=== PATIENT | female | born 1935 | race Caucasian/White ===

== ENCOUNTER 2017-03-25 18:34 | Inpatient (IN) | payer OTHER, MEDICARE ==
[~2017-03-25] VITALS: Ht 154.9 cm; Wt 66.7 kg
--- NOTE | ~2017-03-25 | H ---
[facility] [place] [address] HISTORY AND PHYSICAL Name: SILVERIO WHITFIELD Room #: 205-P [facility] IN M.R.#: [id number] Admission: 03/25/17 Attend Phys: Kartik Morrison MD, Discharge: Date of : 35 Report #: [id number] THIS REPORT FOR: //name// CC: Juan Morrison DATE OF SERVICE: 03/26/2017 INDICATION: Chest pain. HISTORY OF PRESENT ILLNESS: This is an 82-year-old female presenting with left-sided chest and arm discomfort. After eating a piece of chocolate, she had a coughing episode that lasted for approximately 15 minutes. This was followed by a discomfort in the left axillary area, which then radiated down the left arm and shoulder area. The pain persisted and she presented to the Emergency Room for evaluation. She denies any shortness of breath, chest pains, diaphoresis or congestion. She did have a CTA of the chest that was negative for PE or aortic dissection. However, the initial troponin was elevated and she was admitted to the hospital. The second troponin is positive at 5. She has been stabilized with IV heparin and nitroglycerin. There is no history of fever, nausea or diarrhea. PAST MEDICAL HISTORY: Coronary artery disease with stent placement to the left anterior descending in 2014. The occlusion in the left anterior descending involved the bifurcation of the first diagonal artery and surgery was recommended. However, the patient refused and underwent stent placement. History of hypertension, hypercholesterolemia. ALLERGIES: INCLUDE CONTRAST DYE, LATEX, PENICILLINS, BACTRIM. MEDICATIONS: At home include aspirin, Lipitor 80, metoprolol XL 25, WelChol, diazepam. SOCIAL HISTORY: Negative for tobacco use. FAMILY HISTORY: Negative for premature coronary artery disease. REVIEW OF SYSTEMS: A full 10-point review of systems performed. Only the pertinent positives and negatives are described in the HPI. PHYSICAL EXAMINATION: VITAL SIGNS: Blood pressure is 140/90, heart rate is 90 beats per minute. GENERAL APPEARANCE: An elderly appearing female in no acute respiratory distress. HEAD AND EYES: Normocephalic. Sclerae are anicteric. ENT: Oral mucosa moist. [facility] [address] [place] [address] HISTORY AND PHYSICAL Name: SILVERIO WHITFIELD Room #: 205-P [facility] IN [facility]#: [id number] Admission: 03/25/17 Attend Phys: Kartik Morrison MD, Discharge: Date of : 35 Report #: [id number] NECK: Supple. LUNGS: Clear to auscultation. CARDIAC: Regular rate and rhythm, S1, S2 positive. ABDOMEN: Soft. EXTREMITIES: No major joint deformities. No cyanosis, no edema. LABORATORY VALUES: Troponin is 5.05. Sodium is 135, creatinine is 1.5. ECG reveals sinus rhythm, Q-waves in V2 with ST elevation in V2. IMPRESSION AND PLAN: 1. Non-ST elevation myocardial infarction. The patient is stable at this time with IV heparin and nitroglycerin. Given her history and presentation, we discussed the pros and cons of a cardiac catheterization. All questions were answered and the patient wishes to proceed with a cardiac catheterization. 2. Hypertension, continue with the beta jose antonio. 3. Hypercholesterolemia, continue Lipitor. 4. Renal insufficiency, did receive contrast from her CTA. We will proceed with hydration and follow the creatinine. <ELECTRONICALLY SIGNED> By: Fernando Diaz MD 03/27/17 0800 1002 1029 Fernando Diaz MD /nt
--- NOTE | ~2017-03-25 | EKG ---
[address] [address] ELECTROCARDIOGRAM REPORT Name: VIKY WHITFIELDLEY Abilio Room #: 205- ADM IN M.R.#: [id number] Admission: 03/25/17 Attend Phys: Kartik Morrison MD, Discharge: Date of : 35 Report #: [id number] THIS REPORT FOR: //name// [facility] Test Date: 2017-03-26 Test Time: 00:18:05 Pat Name: SILVERIO WHITFIELD Department: Room: 205 Gender: F Furniture Mover Helper: frankie sow RN : 1935 Requested By: Tiarra Baker Order Number: [id number] MD: Fernando Diaz Measurements Intervals [place] Rate: 112 P: 49 MI: 176 QRS: -7 QRSD: 92 T: 67 QT: 319 QTc: 436 Interpretive Statements Sinus tachycardia Atrial premature complex Probable anteroseptal infarct Compared to ECG 01/22/2015 12:02:20 Atrial premature complex(es) now present Electronically Signed On 03-26-2017 12:30:17 HAT FINISHER by Fernando Diaz [email or web address] <ELECTRONICALLY SIGNED> By: Fernando Diaz MD 03/26/17 1230 0018 0018 Fernando Diaz MD /EPI
--- NOTE | ~2017-03-25 | EKG ---
[address] [address] ELECTROCARDIOGRAM REPORT Name: SILVERIO WHITFIELD Room #: 205-P ADM IN M.R.#: [id number] Admission: 03/25/17 Attend Phys: Kartik Morrison MD, Discharge: Date of : 35 Report #: [id number] THIS REPORT FOR: //name// [facility] ED Test Date: 2017-03-25 Test Time: 18:42:59 Pat Name: SILVERIO WHITFIELD Department: Room: [facility] Gender: F Risk Management Director: MARIAH : 1935 Requested By: Tiarra Baker Order Number: [id number] MD: Fernando Diaz Measurements Intervals [place] Rate: 109 P: 84 IN: 176 QRS: -1 QRSD: 92 T: 62 QT: 321 QTc: 433 Interpretive Statements Sinus tachycardia Probable anteroseptal infarct Compared to ECG 01/22/2015 12:02:20 Myocardial infarct finding now present Sinus rhythm no longer present Electronically Signed On 03-26-2017 12:26:18 FRUIT SORTER by Fernando Diaz [email or web address] <ELECTRONICALLY SIGNED> By: Fernando Diaz MD 03/26/17 1226 1842 184 Fernando Diaz MD /KARINA
--- NOTE | ~2017-03-25 | CATHLAB ---
[facility] [address] [place] [address] INVASIVE PROCEDURE REPORT Name: SILVERIO WHITFIELD Room #: 205-P [facility] IN ..#: [id number] Admission: 03/25/17 Attend Phys: Kartik Morrison, Discharge: Date of : 35 Date of Service: 03/26/17 1347 Report #: [id number] THIS REPORT FOR: //name// APPROVED REPORT Patient Details Patient Status: In-Patient Room #: The patient is a 82 year-old female Event Personnel Fernando Diaz Bobbin Winder, Amy Beatty, Batool Mac [place], Ariel RN RN, Charu Holguin RN hooking machine operator Performed Art Access - R femoral artery* 14152 Initial Mod Sed Same Phys/QHP Gr5y 714149 76493 Mod Sed Same Phys/QHP Ea [id number] Left Heart Cath w/or w/o Coronaries [id number] [facility] Hemostasis with Manual pressure Indication Non-STEMI , Dyspnea, Chest pain Risk Factors Hypercholesterolemia, Coronary Artery DiseaseHypertension Previous Procedures/Diagnoses Previous PCI Procedure Narrative The patient was brought urgently to the Cardiac Catheterization Laboratory and was prepped and draped in a sterile manner. The Right Groin^ was infiltrated with 1% Lidocaine subcutaneous anesthesia. A PINNACLE 4FR Sheath #[id number] sheath was inserted into the RFA^. Coronary angiography was performed using coronary diagnostic catheters. The right coronary system was accessed and visualized with a JR 4 catheter. The left coronary system was accessed and visualized with a JL 4 catheter. The left ventricle was accessed and visualized with a Pigtail catheter. Left ventricular/Aortic Valve gradient assessed via catheter pullback. Left ventriculogram was performed in MONDRAGON projection. Hemostasis was obtained with manual pressure following sheath removal without any complications. The patient tolerated the procedure well and there were no complications associated with the procedure. There was no hematoma. [facility] [place] [address] INVASIVE PROCEDURE REPORT Name: SILVERIO WHITFIELD Room #: 205-P [facility] IN ..#: [id number] Admission: 03/25/17 Attend Phys: Kartik Morrison, Discharge: Date of : 35 Date of Service: 03/26/17 1347 Report #: [id number] Intraoperative Conscious Sedation Sedation start time: 12:45 Case end Time: 13:16 Fentanyl 50.0 mcg Versed 1.0 mg Fluoro Time: 3.01 minutes Dose: DAP 2962.50 cGycm2 393 mGy Contrast Type and Amount: Visipaque 100 ml Coronary Angiography The patient's coronary anatomy is right dominant. Diagnostic Cath Left Main Patent vessel, with no flow-limiting lesions. LAD There is a mild to moderate discrete stenosis in the proximal segment, 40%. Within the mid segment is a previously placed stent that is widely patent with mild restenosis, 20%. Diagonal 1 Patent vessel with mild disease at the ostium. Circumflex Patent vessel, with no flow-limiting lesions. OM1 Patent vessel, with no flow-limiting lesions. Right Coronary Dominant vessel with mild disease in the proximal segment, 20%. R PDA Patent vessel, with no flow-limiting lesions. RPLV Patent vessel, with no flow-limiting lesions. Left Ventriculography The left ventricle is mildly dilated in size with decreased contractility. The left ventricular ejection fraction is estimated to be 30%. Left ventricular wall motion abnormalities are present. Hemodynamics The aortic pressure is 97/61 mmHg with a mean of 76 mmHg. The left ventricular pressure is 98/19 mmHg with a mean of mmHg. The left ventricular end diastolic pressure is 27 mmHg. Conclusion 1. Takotsubo cardiomyopathy. 2. Patent stent in the mid LAD with mild restenosis. There is a mild to moderate stenosis in the proximal segment. Recommend medical therapy. [facility] [address] [place] [address] INVASIVE PROCEDURE REPORT Name: VIKY WHITFIELDLEY Abilio Room #: 205-P [facility] IN ..#: [id number] Admission: 03/25/17 Attend Phys: Kartik Morrison, Discharge: Date of : 35 Date of Service: 03/26/17 1347 Report #: [id number] 3. Dominant RCA with mild disease. 4. Recommend medical therapy. <ELECTRONICALLY SIGNED> By: Fernando Diaz MD 03/26/17 1347 46 46 Fernando Diaz MD /INF
--- NOTE | ~2017-03-25 | EKG ---
[address] [place] [address] ELECTROCARDIOGRAM REPORT Name: VIKY WHITFIELDLEY Abilio Room #: 205- ADM IN M.R.#: [id number] Admission: 03/25/17 Attend Phys: Kartik Morrison MD, Discharge: Date of : 35 Report #: [id number] THIS REPORT FOR: //name// [facility] Test Date: 2017-03-26 Test Time: 05:51:35 Pat Name: SILVERIO WHITFIELD Department: Room: 205 Gender: F Event Marketing Intern: frankie sow RN : 1935 Requested By: Fernando Diaz Order Number: [id number] MD: Fernando Diaz Measurements Intervals [place] Rate: 79 P: 45 IA: 195 QRS: -9 QRSD: 101 T: 29 QT: 382 QTc: 438 Interpretive Statements Sinus rhythm Anterior infarct, old Baseline wander in lead(s) V1 Compared to ECG 01/22/2015 12:02:20 No change Electronically Signed On 03-26-2017 12:31:14 CARD PUNCHER by Fernando Diaz [email or web address] <ELECTRONICALLY SIGNED> By: Fernando Diaz MD 03/26/17 1231 0551 0551 Fernando Diaz MD /KARINA
--- NOTE | ~2017-03-25 | D ---
[facility] [place] [address] DISCHARGE SUMMARY Name: SILVERIO WHITFIELD Room #: 205-P [facility] IN M.R.#: [id number] Admission: 03/25/17 Attend Phys: Kartik Morrison MD, Discharge: 03/27/17 Date of : 35 Report #: [id number] THIS REPORT FOR: //name// CC: Juan Morrison FINAL DIAGNOSES: 1. Takotsubo cardiomyopathy. 2. History of coronary artery disease with stent. 3. Hypertension. 4. Hypercholesterolemia. HOSPITAL COURSE: Please see the original H and P for full details. The patient presented with left-sided chest discomfort and arm discomfort. She did have positive troponin levels. In the ER, the patient did undergo CT angio, negative for PE or aortic dissection. She had been premedicated with Solu-Medrol as she has a history of allergy to contrast. A cardiac catheterization was performed, revealing patent stent in the LAD. There is eltr-ib-qyzkpqxz disease in the proximal LAD. A ventriculogram revealed Takotsubo cardiomyopathy. The patient has remained hemodynamically stable. She does not have any evidence for fluid overload. Telemetry reveals sinus rhythm with no significant arrhythmias. The beta jose antonio was switched to Coreg and she is stable for discharge. FINAL DISPOSITION: Aspirin once a day, Lipitor 80 mg, Coreg 3.125 mg twice a day, Plavix 75 mg daily. She is given instructions for followup in the office. <ELECTRONICALLY SIGNED> By: Fernando Diaz MD 03/28/17 0812 0905 1007 Fernando Diaz MD /nt
[~2017-03-25 18:34] MED LIST: ALDACTONE25 MG PO; AMBIEN 5 MG TABL5 M1 PO; ASPIRIN EC325 MG PO; ATORVASTATIN CA40 MG PO; EFFIENT10 MG PO; LIVALO4 MG PO; NITROGLYCERIN0.4 MG SUBLING; TOPROL XL25 MG PO; VALIUM5 MG PO
[2017-03-25 18:41] VITALS: BP 148/95
[2017-03-25 19:05] LABS: HEMATOCRIT 38.1 % (37.0-47.0); HEMOGLOBIN 12.7 gm/dL (12.0-15.0); MCH 32.1 pg (26.0-34.0); MCHC 33.3 g/dL (28.0-37.0); MCV 96.2 fL (80.0-100.0); PLATELET COUNT 233 thou/uL (150-400); RBC 3.96 mil/uL (4.20-5.00); WBC 9.3 thou/uL (4.0-11.0)
[2017-03-25 19:06] LABS: MANUAL DIFF YES
[2017-03-25 19:10] LABS: CALCIUM 9.7 mg/dL (8.5-10.1); CREATININE 1.2 mg/dL (0.6-1.0); POTASSIUM 4.2 mmol/L (3.5-5.1)
[2017-03-25 19:21] LABS: TROPONIN-I 2.54 ng/mL (<0.06)
[2017-03-25 19:42] LABS: APTT 25.2 Seconds (24.5-32.8); PROTIME 10.3 Seconds (9.3-11.4)
[2017-03-25 19:44] LABS: ATYPICAL LYMPHS 4 %; PLATELET ESTIMATE NORMAL; TOTAL CELL COUNT 100
[2017-03-25] MEDS ORDERED: WELCHOL 625 MG625 M1 PO (20:01)
[2017-03-25 22:22] VITALS: BP 105/66
[2017-03-25 22:56] VITALS: BP 108/62
[2017-03-25 23:02] VITALS: BP 116/79
[2017-03-26] VITALS (15 sets, daily range): BP systolic 92–115; BP diastolic 3–78
[2017-03-26 07:08] LABS: CALCIUM 9.7 mg/dL (8.5-10.1); CREATININE 1.5 mg/dL (0.6-1.0)
[2017-03-26 07:14] LABS: POTASSIUM 5.2 mmol/L (3.5-5.1)
[2017-03-27 03:45] LABS: HEMATOCRIT 37.5 % (37.0-47.0); HEMOGLOBIN 12.5 gm/dL (12.0-15.0); MCHC 33.2 g/dL (28.0-37.0); MCV 96.4 fL (80.0-100.0); RBC 3.89 mil/uL (4.20-5.00); RDW 14.4 % (10.5-14.5); WBC 17.9 thou/uL (4.0-11.0)
[2017-03-27 03:54] LABS: CALCIUM 8.9 mg/dL (8.5-10.1); CREATININE 1.4 mg/dL (0.6-1.0); POTASSIUM 4.7 mmol/L (3.5-5.1)
[2017-03-27 05:25] VITALS: BP 99/64
[2017-03-27 07:25] VITALS: BP 104/70
[2017-03-27] MEDS ORDERED: CLOPIDOGREL75 MG PO (08:58)
[2017-03-27] MEDS ORDERED: CARVEDILOL12.5 MG PO (08:59)
[2017-03-27 10:15] VITALS: BP 104/70
[2017-03-27 11:41] VITALS: BP 104/70
== END 2017-03-27 11:42 | disposition home or self-care (01) | DRG 281 ==
LOC: ER 18:34 → EROBS 19:29 → 2N 22:37
PROVIDERS: Emergency Medicine; Internal Medicine Cardiovascular Disease
PROC: B2111ZZ Fluoroscopy of Multiple Coronary Arteries using Low Osmolar Contrast (ICD-10-PCS; principal; 2017-03-26)
PROC: B2151ZZ Fluoroscopy of Left Heart using Low Osmolar Contrast (ICD-10-PCS; principal; 2017-03-26)
PROC: 4A023N7 Measurement of Cardiac Sampling and Pressure, Left Heart, Percutaneous Approach (ICD-10-PCS; principal; 2017-03-26)
DX: I21.4 Non-ST elevation (NSTEMI) myocardial infarction (principal); I51.81 Takotsubo syndrome; T82.855A Stenosis of coronary artery stent, initial encounter; I25.10 Atherosclerotic heart disease of native coronary artery without angina pectoris; K21.9 Gastro-esophageal reflux disease without esophagitis; I10 Essential (primary) hypertension; E78.00 Pure hypercholesterolemia, unspecified; Z88.0 Allergy status to penicillin; Z91.041 Radiographic dye allergy status; Z88.8 Allergy status to other drugs, medicaments and biological substances; Z91.040 Latex allergy status; Z95.5 Presence of coronary angioplasty implant and graft; Z79.899 Other long term (current) drug therapy; Z79.82 Long term (current) use of aspirin; Z90.710 Acquired absence of both cervix and uterus
CPT/HCPCS: 10081

== ENCOUNTER → 2019-09-07 | Outpatient (CLI) | payer OTHER, MEDICARE | LOC: SJCVCIMAG 12:08 | DX: R94.31 Abnormal electrocardiogram [ECG] [EKG] (principal); I65.23 Occlusion and stenosis of bilateral carotid arteries; I10 Essential (primary) hypertension; I21.29 ST elevation (STEMI) myocardial infarction involving other sites; I25.10 Atherosclerotic heart disease of native coronary artery without angina pectoris; R09.89 Other specified symptoms and signs involving the circulatory and respiratory systems; I51.81 Takotsubo syndrome; E78.00 Pure hypercholesterolemia, unspecified; R00.1 Bradycardia, unspecified; Z95.5 Presence of coronary angioplasty implant and graft ==

== ENCOUNTER → 2020-01-01 | Outpatient (CLI) | payer OTHER, MEDICARE ==
[~2020-01-01] MED LIST changes: +CARVEDILOL12.5 MG PO; +CLOPIDOGREL75 MG PO; +WELCHOL 625 MG625 M1 PO
== END ==
LOC: SJCVCIMAG 12-18 11:39
PROVIDERS: ATTEND Internal Medicine Cardiovascular Disease
DX: I25.10 Atherosclerotic heart disease of native coronary artery without angina pectoris (principal)

== ENCOUNTER → 2020-03-13 | Outpatient (CLI) | payer OTHER, MEDICARE | LOC: SJCVC 14:20 | PROVIDERS: ATTEND Internal Medicine Cardiovascular Disease | DX: I25.10 Atherosclerotic heart disease of native coronary artery without angina pectoris (principal); I10 Essential (primary) hypertension; E78.00 Pure hypercholesterolemia, unspecified; I51.81 Takotsubo syndrome; R01.1 Cardiac murmur, unspecified; I38 Endocarditis, valve unspecified; Z95.5 Presence of coronary angioplasty implant and graft ==

== ENCOUNTER → 2020-08-14 | Outpatient (CLI) | payer OTHER, MEDICARE | LOC: SJCVC 13:33 | PROVIDERS: ATTEND Internal Medicine Cardiovascular Disease | DX: R94.31 Abnormal electrocardiogram [ECG] [EKG] (principal); I25.10 Atherosclerotic heart disease of native coronary artery without angina pectoris; I10 Essential (primary) hypertension; E78.00 Pure hypercholesterolemia, unspecified; I51.81 Takotsubo syndrome; Z95.5 Presence of coronary angioplasty implant and graft; Z88.2 Allergy status to sulfonamides; Z88.0 Allergy status to penicillin; Z88.1 Allergy status to other antibiotic agents; Z88.8 Allergy status to other drugs, medicaments and biological substances; Z90.710 Acquired absence of both cervix and uterus; Z79.899 Other long term (current) drug therapy; Z85.3 Personal history of malignant neoplasm of breast; Z82.49 Family history of ischemic heart disease and other diseases of the circulatory system ==

== ENCOUNTER → 2021-04-17 | Outpatient (CLI) | payer OTHER, MEDICARE | LOC: SJCVCIMAG 03-12 07:16 | PROVIDERS: ATTEND Internal Medicine Cardiovascular Disease | DX: I08.3 Combined rheumatic disorders of mitral, aortic and tricuspid valves (principal); I25.10 Atherosclerotic heart disease of native coronary artery without angina pectoris; E78.00 Pure hypercholesterolemia, unspecified; R00.1 Bradycardia, unspecified; D64.9 Anemia, unspecified; F41.9 Anxiety disorder, unspecified; C80.1 Malignant (primary) neoplasm, unspecified; K21.9 Gastro-esophageal reflux disease without esophagitis; F32.A Depression, unspecified; M48.01 Spinal stenosis, occipito-atlanto-axial region; M48.061 Spinal stenosis, lumbar region without neurogenic claudication; I89.0 Lymphedema, not elsewhere classified; M48.00 Spinal stenosis, site unspecified; Z95.5 Presence of coronary angioplasty implant and graft; Z72.89 Other problems related to lifestyle; Z79.899 Other long term (current) drug therapy; Z88.2 Allergy status to sulfonamides; Z88.0 Allergy status to penicillin; Z88.8 Allergy status to other drugs, medicaments and biological substances ==